=== PATIENT | male | born 1975 | race Caucasian/White ===

== ENCOUNTER 2021-07-20 03:40 | Emergency (ER) | payer OTHER ==
[2021-07-20 04:12] VITALS: BMI 27.3
[2021-07-20 04:38] LABS: BASO % 0.7 % (0-2.0); HEMATOCRIT 45.4 % (35.4-49); HEMOGLOBIN 15.7 GM/dL (11.7-16.9); LYMPH % 33.3 % (8-40); MCH 30.6 pg (25.7-33.7); MCHC 34.6 g/dl (32.0-35.9); MEAN CELL VOLUME 88.5 fl (80-96); MEAN PLT VOLUME 9.8 fl (7.5-11.1); MONO % 5.9 % (3.8-10.2); NEUT % 58.1 % (42.8-82.8); PLATELET COUNT 221 10^3/uL (134-434); RBC 5.13 M/mm3 (4.00-5.60); RDW 12.7 % (11.9-15.9); WHITE BLOOD COUNT 5.8 K/mm3 (4.0-10.0)
[2021-07-20 04:59] LABS: CALCIUM 8.9 mg/dL (8.5-10.1)
[2021-07-20 05:00] LABS: ALBUMIN 4.2 g/dl (3.4-5.0); MAGNESIUM 2.1 mg/dL (1.8-2.4)
[2021-07-20 05:04] LABS: TOT PROT 7.3 g/dl (6.4-8.2)
[2021-07-20 05:05] LABS: BILIRUBIN,TOTAL 0.5 mg/dL (0.2-1)
[2021-07-20 06:54] VITALS: BP 128/78; PULSE 80; TEMP 98.5
== END 2021-07-20 07:44 | disposition home or self-care (01) ==
LOC: JER 03:40
DX: R00.2 Palpitations (principal)
CPT/HCPCS: 36415; 71046-TC-FY; 80053; 83735; 84439; 84443; 84484; 85025; 93005; 93010; 99285-25

== ENCOUNTER 2021-07-31 11:16 | Emergency (ER) | payer OTHER ==
[2021-07-31 12:03] VITALS: TEMP 98.6; BMI 26.6
[2021-07-31] MEDS ORDERED: METOCLOPRAMIDE HCL INJECTION 10 MG/2 ML VIAL IVPB ONE (13:19)
[2021-07-31] MEDS ORDERED: SODIUM CHLORIDE 0.9% 500 ML INFUS.BAG IV ONE (13:19)
[2021-07-31] MEDS ORDERED: MECLIZINE HCL 25 MG TABLET (FP) PO ONE (13:19)
[2021-07-31] MEDS ORDERED: MECLIZINE HCL 25 MG TABLET (FP) ONE (13:24)
[2021-07-31] MEDS ORDERED: METOCLOPRAMIDE HCL INJECTION 10 MG/2 ML VIAL ONE (13:24)
[2021-07-31 14:13] LABS: BASO % 0.6 % (0-2.0); EOS % 0.3 % (0-4.5); HEMOGLOBIN 16.1 GM/dL (11.7-16.9); LYMPH % 19.9 % (8-40); MCHC 35.1 g/dl (32.0-35.9); MEAN CELL VOLUME 88.3 fl (80-96); MEAN PLT VOLUME 10.3 fl (7.5-11.1); MONO % 3.5 % (3.8-10.2); NEUT % 75.7 % (42.8-82.8); PLATELET COUNT 249 10^3/uL (134-434); RBC 5.21 M/mm3 (4.00-5.60); WHITE BLOOD COUNT 5.9 K/mm3 (4.0-10.0)
[2021-07-31 14:40] LABS: ALBUMIN 4.2 g/dl (3.4-5.0); BLOOD UREA NITROGEN 13.6 mg/dL (7-18); MAGNESIUM 2.3 mg/dL (1.8-2.4)
[2021-07-31 14:43] LABS: CREATININE 0.8 mg/dL (0.55-1.3)
[2021-07-31 14:45] LABS: TOT PROT 7.3 g/dl (6.4-8.2)
[2021-07-31 16:36] VITALS: BP 127/82; PULSE 67
== END 2021-07-31 18:39 | disposition home or self-care (01) ==
LOC: JER 11:16
PROC: 3E033GC Introduction of Other Therapeutic Substance into Peripheral Vein, Percutaneous Approach (ICD-10-PCS; principal; 2021-07-31)
DX: R42 Dizziness and giddiness (principal); R00.2 Palpitations
CPT/HCPCS: 36415; 71046-TC-FY; 80053; 83735; 84484; 85025; 93005; 93010; 99285-25